=== PATIENT | female | born 1970 | race Caucasian/White ===

== ENCOUNTER 2018-08-21 10:46 | Outpatient (REF) | payer MEDICAID, SELFPAY ==
[2018-08-21 22:42] LABS: T4 6.6 ug/dL (4.5-12.5); TSH 0.36 uIU/mL (0.358-3.74)
[2018-08-21 23:08] LABS: FREE T4 0.98 ng/dL (0.76-1.46)
== END 2018-08-21 11:06 ==
LOC: NCHCN 10:46
PROVIDERS: PCP Nurse Practitioner Family; Visit Provider Nurse Practitioner Family
DX: E03.9 Hypothyroidism, unspecified (principal)
CPT/HCPCS: 84436; 84439; 84443

== ENCOUNTER 2019-06-14 09:50 | Outpatient (REF) | payer MEDICAID, SELFPAY ==
[2019-06-14 20:57] LABS: TSH 3.32 uIU/mL (0.36-3.74)
== END 2019-06-14 10:10 ==
LOC: NCHCN 09:50
PROVIDERS: PCP Nurse Practitioner Family; Visit Provider Nurse Practitioner Family
DX: E03.9 Hypothyroidism, unspecified (principal)
CPT/HCPCS: 84443

== ENCOUNTER 2020-05-19 18:49 | Outpatient (REF) | payer MEDICAID, SELFPAY | END 2020-05-19 18:50 | disposition home or self-care (01) | LOC: NCHCN 18:49 | PROVIDERS: PCP Nurse Practitioner Family; Visit Provider Nurse Practitioner Family | DX: R35.0 Frequency of micturition (principal) | CPT/HCPCS: 87086 ==

== ENCOUNTER 2020-07-03 14:13 | Outpatient (REF) | payer MEDICAID, SELFPAY ==
[2020-07-03 22:23] LABS: TSH 6.35 uIU/mL (0.36-3.74)
== END 2020-07-03 14:14 | disposition home or self-care (01) ==
LOC: NCHCN 14:13
PROVIDERS: PCP Nurse Practitioner Family; Visit Provider Nurse Practitioner Family
DX: E03.9 Hypothyroidism, unspecified (principal)
CPT/HCPCS: 84443

== ENCOUNTER 2020-10-03 13:32 | Outpatient (REF) | payer MEDICAID, SELFPAY ==
[2020-10-03 16:25] LABS: Hemoglobin A1C 5.5 % (<5.7)
[2020-10-03 16:52] LABS: Calculated LDL 108 mg/dL (<100); Cholesterol 181 mg/dL (<200); HDL Cholesterol 61 mg/dL (40-60); TSH 6.69 uIU/mL (0.36-3.74); Triglyceride 61 mg/dL (<150)
== END 2020-10-03 13:33 | disposition home or self-care (01) ==
LOC: NCHCN 13:32
PROVIDERS: PCP Nurse Practitioner Family; Visit Provider Nurse Practitioner Family
DX: E03.9 Hypothyroidism, unspecified (principal); Z13.220 Encounter for screening for lipoid disorders; Z13.1 Encounter for screening for diabetes mellitus
CPT/HCPCS: 80061; 83036; 84443

== ENCOUNTER 2020-12-04 16:40 | Outpatient (REF) | payer MEDICAID, SELFPAY ==
[2020-12-04 22:32] LABS: TSH 3.15 uIU/mL (0.36-3.74)
== END 2020-12-04 16:41 | disposition home or self-care (01) ==
LOC: NCHCN 16:40
PROVIDERS: PCP Nurse Practitioner Family; Visit Provider Nurse Practitioner Family
DX: E03.9 Hypothyroidism, unspecified (principal)
CPT/HCPCS: 84443

== ENCOUNTER 2022-04-08 13:14 | Outpatient (REF) | payer MEDICAID, SELFPAY ==
[2022-04-08 14:36] LABS: HCT 36.9 % (36.0-46.0); HGB 12.4 g/dL (11.2-15.7); MCH 31.7 pg (27.0-33.0); MCHC 33.6 % (32.0-36.0); MCV 94 fL (80-95); MPV 9.7 fL (8.0-11.0); Platelet Count 326 10^3/uL (130-400); RBC 3.91 10^6/uL (3.93-5.22); RDW 11.9 % (11.7-14.6); RDW-SD 40.6 fL
[2022-04-08 14:53] LABS: Hemoglobin A1C 5.3 % (<5.7)
[2022-04-08 15:02] LABS: ALT 19 U/L (14-59); AST 28 U/L (15-37); Albumin 3.7 g/dL (3.4-5.0); Alkaline Phosphatase 63 U/L (46-116); Anion Gap 4.7 mmol/L (3-11); BUN 12 mg/dL (7-18); Bilirubin, Total 0.3 mg/dL (0.2-1.0); CO2 30.3 mmol/L (21.0-32.0); CREATININE 0.7 mg/dL (0.55-1.02); Calculated LDL 93 mg/dL (<100); Chloride 103 mmol/L (98-107); Cholesterol 155 mg/dL (<200); Glucose 81 mg/dL (74-106); HDL Cholesterol 48 mg/dL (40-60); Sodium 138 mmol/L (136-145); TSH 2.55 uIU/mL (0.36-3.74); Total Protein 7.5 g/dL (6.4-8.2); Triglyceride 70 mg/dL (<150)
== END 2022-04-08 13:15 | disposition home or self-care (01) ==
LOC: NCHCN 13:14
PROVIDERS: PCP Nurse Practitioner Family; Visit Provider Nurse Practitioner Family
DX: E03.9 Hypothyroidism, unspecified (principal); Z13.220 Encounter for screening for lipoid disorders; Z13.1 Encounter for screening for diabetes mellitus; Z00.00 Encounter for general adult medical examination without abnormal findings
CPT/HCPCS: 80053; 80061; 85027; 83036; 84443

== ENCOUNTER 2023-02-21 16:46 | Outpatient (REF) | payer MEDICAID, SELFPAY ==
--- OUTSIDE RECORDS SUMMARY | 2023-02-21 16:48 | XMS_ITS | CCD ---
Author Name Unknown Address [address] [place] [address] [phone] Organization Unknown Address [address] [place] [address] [phone] Care Team Providers Care Political Advisor Name Role Phone DAVID MILLER Annabella Attending Physician [phone] Vital Signs Unknown or Not Available. Allergies Allergy Code Allergy Type Reaction Status No Known Allergies 0 No known allergies Active Procedures Unknown or Not Available. History of Immunizations Unknown or Not Available. Problems Problem Code Start Date Resolved Date Status Hypothyroidism 60913979 Active Menorrhagia 237701256 Active Results KAEL BALLESTEROS* - [place] ect Date/Time: 06/20/2021 09:38 Test Name Code Test Result Test Units Test Ref Rang e Tier- 83624-2 PRE-OP N/A SARS COV2 RNA: 86810-4 NEGATIVE N/A REFERENCE RANGE: NEGAT Active Medications Medication Code Dose Units Frequency Route Modificatio n Start Date/Time Lysteda 650MG Oral Tablet 526222 2 TABLET THREE TIMES A DAY ORAL 04/28/2022 17:44 Prescription Detail TAKE 2 TABLET ORAL THREE TIMES A DAY Medications Administered During Visit Unknown or Not Available. Encounters Encounter Diagnosis Diagnosis Code Start Date Pre-surgery testing 148126116 06/20/2021 Social History Smoking Status Code Start Date End Date Never smoker [id number] Patient Decision Aids Unknown or Not Available. Discharge Instructions You were admitted to [facility] on 06/20/2021 07:01 with a principal diagnosis of Encounter for preprocedural laboratory examination You had the following tests done:KAEL ZHANGX* You were discharged from [facility] on 06/20/2021 07:01 Should you have any questions prior to discharge, please contact a member of your healthcare team. If you have left the hospital and have any questions, please contact your primary care physician. Chief Complaint and Reason For Visit Unknown or Not Available. Function Status Unknown or Not Available. Plan of Care Unknown or Not Available. Referral/Transition of Care Unknown or Not Available.
--- OUTSIDE RECORDS SUMMARY | 2023-02-21 16:48 | XMS_ITS | CCD ---
Author Name Unknown Address [address] [place] [address] [phone] Organization Unknown Address [address] [place] [address] [phone] Care Team Providers Care Vp Software Engineering Name Role Phone PAULDAVID COOPER Attending Physician [phone] Vital Signs Vital Sign Value Unit Date/Time Recent/Initial ? BP Systolic 96 mmHg 06/21/2021 11:06 Initial VS BP Diastolic 56 mmHg 06/21/2021 11:06 Initia l VS Respiratory Rate 12 bpm 06/21/2021 11:06 In itial VS Heart Rate 54 bpm 06/21/2021 11:06 Initial VS O2 % BldC Oximetry 100 % 06/21/2021 11:06 Initial VS Allergies Allergy Code Allergy Type Reaction Status No Known Allergies 0 No known allergies Active Procedures Procedure Code Procedure Type Date Colsc Flx w/[place] [address] CPT 06/21/2021 History of Immunizations Unknown or Not Available. Problems Problem Code Start Date Resolved Date Status Hypothyroidism 16406906 Active Menorrhagia 756958392 Active Results Unknown or Not Available. Active Medications Medication Code Dose Units Frequency Route Modificatio n Start Date/Time Lysteda 650MG Oral Tablet 604039 2 TABLET THREE TIMES A DAY ORAL 04/28/2022 17:44 Prescription Detail TAKE 2 TABLET ORAL THREE TIMES A DAY Medications Administered During Visit Unknown or Not Available. Encounters Encounter Diagnosis Diagnosis Code Start Date Encounter for screening for malignant neoplasm o f colon Z1211 06/21/2021 Social History Smoking Status Code Start Date End Date Never smoker [id number] Patient Decision Aids Unknown or Not Available. Discharge Instructions You were admitted to [facility] on 06/21/2021 08:48 with a principal diagnosis of Encounter for screening for malignant neoplasm of colon You had the following procedures done:Colsc Flx w/Rmvl Of Tumor Polyp Lesion Snare Tq You were discharged from [facility] on 06/21/2021 11:29 Should you have any questions prior to [...]
--- OUTSIDE RECORDS SUMMARY | 2023-02-21 16:48 | XMS_ITS | CCD ---
Author Name Unknown Address [address] [place] [address] [phone] Organization Unknown Address [address] [place] [address] [phone] Care Team Providers Care Stadium Attendant Name Role Phone MICHELLE DARBY Attending Physician [phone] SAMM SOMMER Er Physician 4 [phone] PRIMO De Guzman Registered Nurse [phone] Vital Signs Vital Sign Value Unit Date/Time Recent/Initial ? BMI (Body Mass Index) 24.3 kg/m^2 04/28/2022 15: 59 Initial VS Weight Measured 146 lbs 04/28/2022 15:59 Ini tial VS Height 65 in 04/28/2022 15:59 Initial VS BSA (Body Surface Area) 1.74 m^2 04/28/2022 1 5:59 Initial VS BP Systolic 138 mmHg 04/28/2022 15:59 Initial VS BP Diastolic 87 mmHg 04/28/2022 15:59 Initia l VS Respiratory Rate 16 bpm 04/28/2022 15:59 In itial VS Heart Rate 88 bpm 04/28/2022 15:59 Initial VS O2 % BldC Oximetry 100 % 04/28/2022 15:59 Initial VS Body Temperature 37.5 degrees 04/28/2022 15:59 In itial VS BP Systolic 123 mmHg 04/28/2022 18:25 Most Re cent VS BP Diastolic 83 mmHg 04/28/2022 18:25 Most R ecent VS Respiratory Rate 16 bpm 04/28/2022 18:[address] Recent VS Heart Rate 77 bpm 04/28/2022 18:25 Most Rec ent VS O2 % BldC Oximetry 100 % 04/28/2022 18:25 Most Recent VS Allergies Allergy Code Allergy Type Reaction Status No Known Allergies 0 No known allergies Active Procedures Unknown or Not Available. History of Immunizations Unknown or Not Available. Problems Problem Code Start Date Resolved Date Status Hypothyroidism 22855130 Active Menorrhagia 116313521 Active Results CBC W/ DIFFERENTIAL* - Colle ct Date/Time: 04/28/2022 16:40 Test Name Code Test Result Test Units Test Ref Rang e WBC 6690-2 7.44 th/cmm L=5.00 H=10.00 NEUT % 61.6 % L=40.0 H=80.0 LYMPH % 30.0 % L=10.0 H=50.0 MONO % 24935-7 6.0 % L=2.0 H=12.0 EOS % 1.6 % L=0.0 H=8.0 BASO % 0.5 % L=0.0 H=3.0 IG % 2514-8 0.3 % L=0.0 H=1.1 NRBC % 70331-1 0.0 % L=0.0 H=0.0 NEUT abs count 751-8 4.6 th/cmm L=1.6 H=8. 4 LYMPH abs count 731-0 2.2 th/cmm L=1.5 H=4 .0 MONO abs count 742-7 0.5 th/cmm L=0.2 H=1. 0 EOS abs count 711-2 0.1 th/cmm L=0.0 H=0.5 BASO abs count 704-7 0.0 th/cmm L=0.0 H=0. 2 IG abs count 13908-9 0.0 th/cmm L=0.0 H=0.1 NRBC abs count 85617-9 0.0 mil/cmm L=0.0 H=0. 0 RBC 789-8 3.86 mil/cmm L=3.90 H=5.40 HEMOGLOBIN 718-7 12.3 gm/dL L=12.0 H=16.0 HEMATOCRIT 4544-3 36 % L=37 H=47 MCV 787-2 94 fL L=82 H=92 MCH 785-6 31.9 pg L=27.0 H=31.0 MCHC 786-4 34.1 % L=32.0 H=36.0 RDW-SD 788-0 40.5 fL L=39.0 H=49.0 PLATELET COUNT 777-3 361 th/cmm L=150 H=45 0 Active Medications Medications Administered During Visit Medication Dose Units Frequency Route Date/Time of Last Dose TRANEXAMIC ACID IVPB: 1000MG/50ML 1000 MG X1 04/28/2022 18:03 Encounters Encounter Diagnosis Diagnosis Code Start Date Excessive and frequent menstruation with regular cycle N920 04/28/2022 Social History Smoking Status Code Start Date End Date Never smoker [id number] Patient Decision Aids Unknown or Not Available. Discharge Instructions You were admitted to [facility] on 04/28/2022 15:49 with a principal diagnosis of Excessive and frequent menstruation with regular cycle You had the following tests done:CBC W/ DIFFERENTIAL* You were discharged from [facility] on 04/28/2022 18:34 Should you have any questions prior to discharge, please contact a member of your healthcare team. If you have left the hospital and have any questions, please contact your primary care physician. Chief Complaint and Reason For Visit Chief Complaint Date of Onset HEAVY MENSTRUAL CYCLE Function Status Unknown or Not Available. Plan of Care Unknown or Not Available. Referral/Transition of Care Unknown or Not Available.
--- OUTSIDE RECORDS SUMMARY | 2023-02-21 16:48 | XMS_ITS | CCD ---
Author Name Unknown Address [address] [place] [address] [phone] Organization Unknown Address [address] [place] [address] [phone] Care Team Providers Care Nursing Director Name Role Phone DAVID MILLER Annabella Attending Physician [phone] Vital Signs Unknown or Not Available. Allergies Allergy Code Allergy Type Reaction Status No Known Allergies 0 No known allergies Active Procedures Unknown or Not Available. History of Immunizations Unknown or Not Available. Problems Problem Code Start Date Resolved Date Status Hypothyroidism 44503614 Active Menorrhagia 953450326 Active Results Unknown or Not Available. Active Medications Medication Code Dose Units Frequency Route Modificatio n Start Date/Time Lysteda 650MG Oral Tablet 906529 2 TABLET THREE TIMES A DAY ORAL 04/28/2022 17:44 Prescription Detail TAKE 2 TABLET ORAL THREE TIMES A DAY Medications Administered During Visit Unknown or Not Available. Encounters Encounter Diagnosis Diagnosis Code Start Date Encounter for screening for malignant neoplasm o f colon Z1211 06/21/2021 Social History Smoking Status Code Start Date End Date Never smoker [id number] Patient Decision Aids Unknown or Not Available. Discharge Instructions You were admitted to [facility] on 06/21/2021 00:26 with a principal diagnosis of Encounter for screening for malignant neoplasm of colon You were discharged from [facility] on 06/21/2021 00:29 Should you have any questions prior to [...]
== END 2023-02-21 16:47 | disposition home or self-care (01) ==
LOC: NCHCN 16:46
PROVIDERS: PCP Nurse Practitioner Family; Visit Provider Family Medicine
DX: J02.9 Acute pharyngitis, unspecified (principal)
CPT/HCPCS: 87070

== ENCOUNTER 2023-03-17 14:39 | Outpatient (REF) | payer MEDICAID, SELFPAY ==
[2023-03-17 14:42] LABS: HCT 36.2 % (36.0-46.0); HGB 12.6 g/dL (11.2-15.7); MCH 32.2 pg (27.0-33.0); MCHC 34.8 % (32.0-36.0); MCV 93 fL (80-95); Platelet Count 278 10^3/uL (130-400); RBC 3.91 10^6/uL (3.93-5.22); RDW 11.8 % (11.7-14.6); RDW-SD 39.8 fL; WBC 6.99 10^3/uL (4.4-10.8)
[2023-03-17 15:06] LABS: TSH (W/Ref FT4) 1.27 uIU/mL (0.36-3.74)
== END 2023-03-17 14:40 | disposition home or self-care (01) ==
LOC: NCHCN 14:39
PROVIDERS: PCP Nurse Practitioner Family; Visit Provider Registered Nurse
DX: E03.9 Hypothyroidism, unspecified (principal); R42 Dizziness and giddiness
CPT/HCPCS: 85027; 84443

== ENCOUNTER 2023-05-22 16:11 | Outpatient (REF) | payer MEDICAID, SELFPAY ==
--- NOTE | 2023-05-22 09:30 | PAPFT_PTH ---
PATIENT: Noe Welch LOC: [facility], [facility] U#:[id number] AGE/SX: 53/F ROOM: RE05/22/[address]: Jaymie Tavares : 1970 BED: DIS: 05/22/2023 SPEC #: [id number] RECD: 05/22/23 17:20 STATUS: LISA PALACIOS #: [id number] ZEENAT: 05/22/23 09:[address]: Jaymie Sheppard DEPT: [facility] Cytology RECD BY: Nessa Wei Tissues: 1 - CX/ENDOCX FOR PAP SMEARS Procedures: PAP THIN PREP/[facility] Screening HPV DNA PROBE Comments: [id number]
== END 2023-05-22 16:12 | disposition home or self-care (01) ==
LOC: NCHCN 16:11
PROVIDERS: PCP Nurse Practitioner Family; Visit Provider Nurse Practitioner Family
DX: Z12.4 Encounter for screening for malignant neoplasm of cervix (principal); Z11.51 Encounter for screening for human papillomavirus (HPV)
CPT/HCPCS: 88142; 87624

== ENCOUNTER 2024-09-27 14:08 | Outpatient (REF) | payer MEDICAID, SELFPAY ==
[2024-09-27 21:44] LABS: Hemoglobin A1C 5.1 % (<5.7)
[2024-09-27 22:40] LABS: Anion Gap 6.6 mmol/L (3-11); BUN 12 mg/dL (7-18); CO2 30.4 mmol/L (21.0-32.0); Calcium 9.2 mg/dL (8.5-10.1); Calculated LDL 98 mg/dL (<100); Chloride 101 mmol/L (98-107); Cholesterol 194 mg/dL (<200); Estimated GFR 107.93 (mL/min/1.73m2); Glucose 87 mg/dL (74-106); HDL Cholesterol 48 mg/dL (>or=50); Potassium 4.1 mmol/L (3.5-5.1); Sodium 138 mmol/L (136-145); TSH 0.40 uIU/mL (0.36-3.74); Triglyceride 241 mg/dL (<150)
== END 2024-09-27 14:09 | disposition home or self-care (01) ==
LOC: NCHCN 14:08
PROVIDERS: PCP Nurse Practitioner Family; Visit Provider Nurse Practitioner Family
DX: E03.9 Hypothyroidism, unspecified (principal); Z13.1 Encounter for screening for diabetes mellitus; Z13.220 Encounter for screening for lipoid disorders; Z13.6 Encounter for screening for cardiovascular disorders
CPT/HCPCS: 80048; 80061; 83036; 84443